=== PATIENT | male | born 1985 | race Caucasian/White ===

== ENCOUNTER 2016-08-22 13:58 | Inpatient (IN) | payer OTHER ==
--- NOTE | ~2016-08-22 | PN ---
Unit #: [id number] #: [id number] Patient: JOSE LEY [id number] [facility] [address] [place] [address] [id number] I MR#: [id number] NAME: JOSE LEY ROOM: P211 Age: 31 Sex: M Admission Date: 08/22/2016 : 1985 Attending Physician: Brant Hernandez M.D. Admitting Physician: Brant Hernandez M.D. Primary Care Physician: Primary Care Physician Huma MORGAN PROGRESS NOTES DATE OF SERVICE: 08/24/2016 DISCUSSION Jose Ley is a 31-year-old male, seen on 08/24/2016. The patient interviewed, chart reviewed, and obtained information from nursing staff. The patient was tolerating medication fairly well, able to maintain safe behavior. Denied any complaints. No side effects from medication. Complete review of systems unremarkable. MENTAL STATUS EXAMINATION General appearance, the patient dressed casually. Attention span and concentration, fair. Oriented in place and person. Mood and affect were labile. Speech, regular rate. Thought process, goal directed. The patient denied any thoughts of harming self or others or any psychotic symptom. Recent and remote memory, poor. Insight and judgment, poor. DIAGNOSIS Mood disorder, not otherwise specified. ASSESSMENT AND PLAN Advised to continue with current medication and therapeutic protocol. We will monitor response to medication and make further adjustment of medication if needed. Dictated by... Vianca Payton/jerry TD: 08/26/2016 20:37 JOB #: [id number] EDDIE PROGRESS NOTES X Brant Hernandez MD PROGRESS NOTE
--- NOTE | ~2016-08-22 | PN ---
Unit #: [id number] #: [id number] Patient: JOSE PORTER [id number] [facility] [address] [place] [address] [id number] MR#: [id number] NAME: JOSE PORTER ROOM: P211 Age: 31 Sex: M Admission Date: 08/22/2016 : 1985 Attending Physician: Brant Hernandez M.D. Admitting Physician: Brant Hernandez M.D. Primary Care Physician: Primary Care Physician Huma WHELAN NOTES DATE OF SERVICE: 08/25/2016 DISCUSSION Mr. Henley is a 31-year-old male. The patient interviewed, chart reviewed, obtained information from nursing staff. The patient was compliant and cooperative. Mood is sad, dysphoric, flat affect. The patient was able to maintain safe behavior. No aggression. REVIEW OF SYSTEMS Complete review of systems is unremarkable. MENTAL STATUS EXAMINATION General appearance; the patient dressed casually. Attention span and concentration, fair. Oriented in place and person. Mood and affect; sad and dysphoric. Speech, monotone. Thought process, concrete. The patient denied any thoughts of harming self or others or any psychotic symptom. Recent and remote memory, poor. Insight and judgment, poor. DIAGNOSIS Mood disorder, not otherwise specified. ASSESSMENT AND PLAN Advised to continue with current medication and therapeutic protocol. We will monitor response to medication and make further adjustment of medication if needed. Dictated by... Vianca Payton/jerry TD: 08/27/2016 06:23 JOB #: [id number] Unit #: [id number] #: [id number] Patient: JOSE PORTER [facility] PROGRESS NOTES X Brant Hernandez MD PROGRESS NOTE
--- NOTE | ~2016-08-22 | PN ---
Unit #: [id number] #: [id number] Patient: JOSE PORTER [id number] [facility] [address] [place] [address] [id number] MR#: [id number] NAME: JOSE PORTER ROOM: P211 Age: 31 Sex: M Admission Date: 08/22/2016 : 1985 Attending Physician: Brant Hernandez M.D. Admitting Physician: Brant Hernandez M.D. Primary Care Physician: Primary Care Physician Huma MORGAN PROGRESS NOTES DATE 08/23/2016 DISCUSSION Jose is a 31-year-old male seen on 08/23/2016. Patient interviewed. Chart reviewed. Obtained information from nursing staff. Patient was compliant, cooperative. Mood sad, dysphoric, isolative, guarded. Complete review of system unremarkable. MENTAL STATUS EXAMINATION General appearance, patient dressed casually. Attention span, concentration fair. Oriented in place and person. Mood and affect sad, dysphoric. Speech monotone. Thought process concrete. Patient denied any thoughts of harming self or others but still hopeless, worthless, withdrawn, isolative, guarded. Recent and remote memory poor. Insight and judgement poor. DIAGNOSES 1. Mood disorder NOS. 2. Amphetamine use disorder, moderate. ASSESSMENT/PLAN Advised to start patient on Celexa 20 mg daily at bedtime. If needed, consider adjustment of medication. Continue with the inpatient programming. Dictated by... Vianca Payton/madina TD: 08/24/2016 20:35 JOB #: [id number] Unit #: [id number] #: [id number] Patient: JOSE PORTER [facility] PROGRESS NOTES X Brant Hernandez MD PROGRESS NOTE
--- NOTE | ~2016-08-22 | DS ---
Unit #: [id number] #: [id number] Patient: JOSE PORTER [id number] [place] [address] [id number] MR#: [id number] NAME: JOSE PORTER ROOM: [facility] Age: 31 Sex: M Admission Date: 08/22/2016 : 1985 Discharge Date: 08/26/2016 Attending Physician: Brant Hernandez M.D. Primary Care Physician: Primary Care Physician No DISCHARGE SUMMARY REASON FOR ADMISSION Polysubstance abuse withdrawal. DIAGNOSTIC STUDIES LABORATORY RESULTS: Remarkable for a glucose of 140. Urine drug screen positive for benzodiazepine, amphetamine, and marijuana. HOSPITAL COURSE The patient was admitted to inpatient unit on 08/22/2016 and discharged on 08/26/2016. The patient was treated on the inpatient unit with group therapy, individual therapy, medication management, detox monitoring, and detox protocol. The patient responded well with the above modalities of treatment. Subsequently, the patient was discharged with a plan to follow up in outpatient program. DISCHARGE MEDICATIONS Desyrel 75 mg at bedtime for sleep and Celexa 20 mg daily for depression. DISCHARGE DIAGNOSES Psychiatric: 1. Mood disorder, not otherwise specified, F32.9. 2. Rule out major depressive disorder. 3. Amphetamine use disorder, severe, F15.20. Secondary diagnosis: Deferred. Medical diagnosis: None. Stressors: Psychosocial stressors. DISCHARGE INSTRUCTIONS The patient is to follow up in outpatient clinic as per renal social worker. CONDITION ON DISCHARGE The patient was pleasant and cooperative. Denied any psychotic symptom or any suicidal ideation. PROGNOSIS Guarded. DIET AND ACTIVITY As tolerated. Unit #: [id number] #: [id number] Patient: JOSE PORTER Dictated by... Brant Hernandez M.D. SZC/ashkanl TD: 08/27/2016 18:00 JOB #: [id number] DISCHARGE SUMMARY X Brant Hernandez MD X DISCHARGE SUMMARY
--- NOTE | ~2016-08-22 | PA ---
Unit #: [id number] #: [id number] Patient: JOSE PORTER [id number] [facility] [address] [place] [address] [id number] MR#: [id number] NAME: JOSE PORTER ROOM: P211 Age: 31 Sex: M Admission Date: 08/22/2016 : 1985 Date of Assessment: Attending Physician: Brant Hernandez M.D. Admitting Physician: Brant Hernandez M.D. Primary Care Physician: Primary Care Physician No PSYCHIATRIC ASSESSMENT INFORMANTS The patient reliability, fair; chart reliability, good. CHIEF COMPLAINT Depression and detox. HISTORY OF PRESENT ILLNESS Mr. Chavira is a 31-year-old male, seen on 08/22/2016. The patient presented with the above-mentioned complaint. The patient reported currently detoxing, feeling sad and depressed. The patient has a history of inpatient treatment at [facility] three times, [facility] as an inpatient for suicidal ideation and homicidal ideation, and history of treatment at [facility] for depression. The patient lives with his mother. The patient presented with depressive symptoms, use of meth and spice. The patient reported he continues to use drugs, which is causing him suicidal. The patient reports doing drugs for too long. The patient reported setting drugs, reports having lot of drugs he can use. The patient reports currently suicidal with a plan to walk into the traffic. The patient denied any homicidal ideation. Guarded and paranoid. Needing inpatient admission at this time for psychiatric stabilization. PAST PSYCHIATRIC HISTORY Please see above. History of previous treatment. FAMILY HISTORY AND SOCIAL HISTORY The patient lives with his mother. No known history of any abuse. No history of other psychiatric illness except substance abuse in mother's side of the family. MEDICAL HISTORY Unremarkable for any history of chronic medical illness. Musculoskeletal; muscle strength and tone, no atrophy or abnormal movement. Gait normal. MEDICATION HISTORY None. ALLERGIES No known drug allergies. SUBSTANCE ABUSE HISTORY The patient admitted tobacco use, age of onset 10; alcohol, age of onset 10; marijuana, age of onset 10; opioid, age of onset 29; and amphetamine, Unit #: [id number] #: [id number] Patient: JOSE PORTER age of onset 27. The patient reported history of blackout and withdrawal symptoms, but denied any use of IV drugs. No history of any HIV or hepatitis. History of irritability, nervousness, poor concentration, restlessness problem, sleep problem, and tremors. REVIEW OF SYSTEMS HEENT: Eyes, clear. Ears, nose, mouth, throat; clear. CARDIOVASCULAR: Unremarkable. RESPIRATORY: Unremarkable. GI: Unremarkable. : Unremarkable. SKIN: Unremarkable. LYMPH NODE: Unremarkable. NEUROLOGIC: Unremarkable. ENDOCRINE: Unremarkable. HEMATOLOGIC: Unremarkable. ALLERGIC/IMMUNOLOGIC: Unremarkable. MUSCULOSKELETAL: Muscle strength and tone, no atrophy or abnormal movement. Gait normal. MENTAL STATUS EXAMINATION CONSTITUTIONAL: Measurement of vital signs; temperature 98.3, pulse 69, respirations 17, and blood pressure 101/73. GENERAL APPEARANCE: The patient dressed casually. Multiple tattoos on his body and face. No facial deformity noted. MUSCULOSKELETAL: Please see above. PSYCHIATRIC EXAMINATION Description of speech; regular rate, slow in volume. Description of thought process, circumstantial. Description of abnormal psychotic thinking; the patient was guarded, paranoid, mood lability, depressed, suicidal ideation. Denied any homicidal ideation. Substance abuse. Description of the patient's judgment: Concerning everyday activity, poor. Social situation, poor. Concerning psychiatric condition, poor. Complete mental status examination; oriented in time, place, and person. Recent and remote memory, fair. Attention span and concentration, fair. Language; able to name object, repeat phrases. Fund of knowledge; aware of current event, passive vocabulary intact. Mood and affect, sad and dysphoric. Insight and judgment were fair to poor. ASSETS AND LIABILITIES Assets; the patient is articulate, able to take care of his ADL. Liabilities; history of depression, substance abuse. ADMITTING DIAGNOSES Psychiatric: 1. Mood disorder, not otherwise specified, F32.9. 2. Rule out major depressive disorder, recurrent. 3. Amphetamine use disorder, severe, F15.20. Secondary diagnosis: Deferred. Medical diagnosis: None. Stressors: Psychosocial stressors. PSYCHIATRIC PLAN, TREATMENT GOAL, AND DISCHARGE PLAN 1. Advised to admit the patient on the inpatient unit. Provide safe, Unit #: [id number] #: [id number] Patient: JOSE PORTER supportive, and structured environment. 2. Ordered labs; CBC, CMP, UA, and UDS. 3. Plan is to consider medication for his depression and psychosis. Advised to continue the patient's home medications; Inderal 40 mg b.i.d., Vistaril 50 mg t.i.d., and trazodone 75 mg p.o. q.h.s. p.r.n. 4. The patient is to attend all the programing, group therapy, individual therapy, and family session. 5. Treatment goal is to attain euthymic mood, gain insight into his problem, and learn coping skills. 6. Discharge plan: Plan is to stabilize the patient and consider followup in outpatient program. ESTIMATED LENGTH OF STAY 5 days. Dictated by... Vianca Payton/jerry TD: 08/23/2016 18:51 JOB #: [id number] PSYCHIATRIC ASSESSMENT X Brant Hernandez MD X PSYCHIATRIC ASSESSMENT
--- NOTE | ~2016-08-22 | HP ---
Unit #: [id number] #: [id number] Patient: KALE PORTER [id number] [place] [address] [id number] MR#: [id number] NAME: KALE PORTER ROOM: P211 Age: 31 Sex: M Admission Date: 08/22/2016 : 1985 Attending Physician: Brant Hernandez M.D. Admitting Physician: Brant Hernandez M.D. Primary Care Physician: Primary Care Physician No HISTORY AND PHYSICAL HISTORY OF PRESENT ILLNESS Kale is a 31 year old admitted to [address] [place] [address] because of his drug use. PAST MEDICAL HISTORY Long history of illicit substance abuse to include methamphetamine. PAST SURGICAL HISTORY Nothing reported. ALLERGIES Thorazine, Zyprexa. SOCIAL HISTORY Smokes less than one pack per day. Denies alcohol. Admits to a long history of illicit substance abuse to include methamphetamine and heroin FAMILY HISTORY Medically noncontributory. REVIEW OF SYSTEMS CONSTITUTIONAL: No fever or chills. HEENT: Denies any sore throat, ear pain or runny nose. CARDIOVASCULAR: Denies chest pain, irregular heart rhythm or palpitations. CHEST: Denies shortness of breath or cough. No hemoptysis. GASTROINTESTINAL: Denies nausea, vomiting, diarrhea or chronic constipation. ENDOCRINE: Denies history of increased thirst or urination. No recent significant weight loss or gain. GENITOURINARY: Denies dysuria, frequency, or hematuria. SKIN: Denies any rashes. HEMATOLOGIC: Denies history of increased bleeding or bruising. MUSCULOSKELETAL: Denies any hot, swollen joints. No generalized muscle pain. NEUROLOGIC: Denies problems with vision or speech. No frequent, severe headaches. No numbness, tingling or weakness in any extremities. Denies loss of bladder or bowel control. CURRENT MEDICATIONS 1. Inderal 40 mg b.i.d. 2. Vistaril 50 mg t.i.d. 3. Trazodone 75 mg q.h.s. p.r.n. Unit #: [id number] #: [id number] Patient: KALE PORTER 4. Milk of Magnesia p.r.n. 5. Maalox p.r.n. 6. Tylenol p.r.n. 7. Nicotine patch 7 mg daily PHYSICAL EXAMINATION GENERAL: Alert, well-nourished, in no apparent distress. VITAL SIGNS: Blood pressure 134/88, heart rate 66, respirations 16, temperature 98.6. WEIGHT: 110 pounds. HEIGHT: 4'11". SKIN: Warm and dry without rash or lesion. HEENT: Normocephalic. TMs not viewed. Oral and nasal passages clear. Conjunctivae clear. Pupils equal, round and reactive to light and accommodation. Extraocular movements intact. NECK: Supple without lymphadenopathy or thyromegaly. HEART: Regular rate and rhythm without murmur. LUNGS: Clear. ABDOMEN: Soft, nontender. : Not done. EXTREMITIES: No evidence of cyanosis, clubbing or edema. Moves all extremities without focal deficit. NEUROLOGICAL: Grossly within normal limits. Cranial Nerves: II: Visual freedman are intact. III, IV AND : Extraocular movements are intact. Pupils are equal, round and reactive to light. V: Facial sensation is grossly normal. VII: Facial movements and expression are normal. VIII: Auditory acuity grossly intact. IX, X: Uvula is midline. Phonation is normal. XI: Patient shrugs shoulders and turns head normally. XII: Tongue protrudes in the midline. Sensory and Motor Function: Sensory and motor sensation is grossly normal. Motor: moves all extremities well. Coordination: Gait is normal. Deep Tendon Reflexes: Intact. IMPRESSION Psychiatric admission RECOMMENDATIONS PSYCHIATRIC: Per psychiatrist. MEDICAL: I see no contraindications to participating in facility's activities. MEDICAL PROGNOSIS Good. MEDICAL CONDITION Stable. Dictated by... Maggie Camargo P.A.-C. for Vianca Issa/maría Unit #: [id number] #: [id number] Patient: KALE PORTER TD: 08/22/2016 19:48 JOB #: [id number] HISTORY AND PHYSICAL X Maggie Camargo X HISTORY AND PHYSICAL
[~2016-08-22 13:58] MED LIST: ACETAMINOPHEN PO; KEFLEX PO; KETOPROFEN PO; MULTI-VITAMIN1 TAB PO; PEN-VEE K PO; PERCOCET5/325 PO; SEROQUEL PO; SILVADENE TOP; THIAMINE HCL100 MG PO; VICODIN 5/500 T1 TAB PO; VICODIN PO
[2016-08-23 09:49] LABS: BASOPHIL# 0.1 X10e3 (0-0.3); BASOPHIL% 1.3 % (0-2.5); EOSINOPHIL# 0.3 X10e3 (0-0.7); EOSINOPHIL% 4.5 % (0.0-7.0); HEMATOCRIT 40.8 % (38.0-50.0); HEMOGLOBIN 13.3 gm/dL (13.0-16.0); LYMPHOCYTE# 2.3 X10e3 (1.0-3.5); LYMPHOCYTE% 30.6 % (17.0-45.0); MEAN CELL VOLUME 88.3 FL (83-96); MEAN CORPUSCULAR HEMOGLOBIN 28.8 PG (28-34); MEAN CORPUSCULAR HGB CONC 32.6 g/dL (30-36); MEAN PLATELET VOLUME 8.8 FL (6.5-11.5); MONOCYTE# 1.1 X10e3 (0-1.0); MONOCYTE% 14.5 % (3.0-12.0); NEUTROPHIL# 3.8 X10e3 (1.5-7.1); NEUTROPHIL% 49.1 % (40-75); PLATELET COUNT 310 X10e3 (140-420); RED BLOOD COUNT 4.63 X10e (3.90-5.60); WHITE BLOOD COUNT 7.7 X10e3 (4.0-10.5)
[2016-08-23 09:56] LABS: URINE APPEARANCE CLEAR; URINE BILIRUBIN NEG (NEG); URINE BLOOD NEG (NEG); URINE COLOR YELLOW; URINE GLUCOSE NEG (NEG); URINE KETONE NEG (NEG); URINE LEUKOCYTE ESTERASE NEG (NEG); URINE NITRATE NEG (NEG); URINE PROTEIN NEG (NEG); URINE SPECIFIC GRAVITY 1.013 (1.003-1.035); URINE UROBILINOGEN 0.2 MG/DL (NEG)
[2016-08-23 10:09] LABS: DIFF IND NO
[2016-08-23 10:20] LABS: THYROID STIMULATING HORMONE 0.7 uIU/ml (0.34-5.60)
[2016-08-23 10:24] LABS: ALBUMIN SERUM 3.8 g/dL (3.5-5.0); ALKALINE PHOSPHATASE 64 U/L (32-92); ALT (SGPT) 15 U/L (10-40); AST (SGOT) 20 U/L (10-42); BILIRUBIN,TOTAL 0.3 mg/dL (0.2-2.0); BLOOD UREA NITROGEN 12 mg/dL (9-23); CALCIUM SERUM 9.7 mg/dL (8.4-10.2); CARBON DIOXIDE 27 mmol/L (22-31); CHLORIDE 107 mmol/L (100-111); CREATININE SERUM 1.1 mg/dL (0.6-1.4); GLOM FILT RATE Estimated ABOVE60 mL/min (>60); GLUCOSE FASTING 140 mg/dL (70-110); PROTEIN TOTAL SERUM 6.4 g/dL (6.0-8.3); SODIUM 141 mmol/L (135-145)
[2016-08-23 10:27] LABS: FREE THYROXIN (T4) 0.73 ng/dL (0.58-1.64)
[2016-08-23 10:46] LABS: AMPHETAMINE POS (NEG); BARBITURATES NEG (NEG); BENZODIAZEPINES POS (NEG); COCAINE NEG (NEG); MARIJUANA POS (NEG); OPIATES NEG (NEG); TRICYCLIC ANTIDEPRESSANTS NEG (NEG); U METHADONE NEG (NEG)
== END 2016-08-26 17:11 | DRG 897 ==
LOC: P2S 13:58
PROVIDERS: Psychiatry & Neurology Psychiatry
DX: F19.239 Other psychoactive substance dependence with withdrawal, unspecified (principal); F15.20 Other stimulant dependence, uncomplicated; F32.9 Major depressive disorder, single episode, unspecified; F17.200 Nicotine dependence, unspecified, uncomplicated; F39 Unspecified mood [affective] disorder
CPT/HCPCS: 80053; 80307; 81003; 84439; 84443; 85025; 90688